=== PATIENT | male | born 1980 | race Caucasian/White ===

== ENCOUNTER 2020-07-07 15:44 | Emergency (ER) | payer OTHER ==
[2020-07-07] MEDS ORDERED: DIPHTH,PERTUSS(ACELL),TET 0.5 ML DISP.SYRIN IM ONE ×2 (16:07→16:49)
--- NOTE | 2020-07-07 16:07 | PDOC ---
Rapid Medical Evaluation Time Seen by Provider: 07/07/20 16:03 Medical Evaluation: 07/07/20 16:03 40 year old male cutr his left hand while cutting sheet rock PE: 1cm laceration to dorsum of left hand overbase of thumb Tetanus lac repair
[2020-07-07 16:11] VITALS: BP 159/98; PULSE 80; TEMP 97.9; BMI 39.1
--- OUTSIDE RECORDS SUMMARY | 2020-07-07 16:23 | XMS ---
:1980 Author Organization [facility] Support Name Relationship Address Phone UE Unavailable Unavailable Unavailable PRUDENCIO CHAPMAN [address] [place] [address] Re-disclosure Warning The records that you are about to access may contain information from federally- assisted alcohol or drug abuse programs. If such information is present, then the following federally mandated warning applies: This information has been disclosed to you from records protected by federal confidentiality rules (42 CFR part 2). The federal rules prohibit you from making any further disclosure of this information unless further disclosure is expressly permitted by the written consent of the person to whom it pertains or as otherwise permitted by 42 CFR part 2. A general authorization for the release of medical or other information is NOT sufficient for this purpose. The Federal rules restrict any use of the information to criminally investigate or prosecute any alcohol or drug abuse patient.The records that you are about to access may contain highly sensitive health information, the redisclosure of which is protected by Article 27-F of the [facility] Public Health law. If you continue you may haveaccess to information: Regarding HIV / AIDS; Provided by facilities licensed or operated by the [facility] Office of Mental Health; or Provided by the [facility] Office for People With Developmental Disabilities. If such information is present, then the following [facility] mandated warning applies: This information has been disclosed to you from confidential records which are protected by state law. State law prohibits you from making any further disclosure of this information without the specific written consent of the person to whom it pertains, or as otherwise permitted by law. Any unauthorized further disclosure in violation of state law may result in a fine or alf sentence or both. A general authorization for the release of medical or other information is NOT sufficient authorization for further disclosure. Insurance Providers Payer name Policy type Policy ID Covered Covered libertarian's Policy P darlin / Coverage libertarian ID relationship to Far[facility] Inf ormation type farah MEDICAID [id number]
--- NOTE | 2020-07-07 17:06 | PDOC ---
History of Present Illness - General Chief Complaint: Laceration Stated Complaint: LACERATION Time Seen by Provider: 07/07/20 16:03 - History of Present Illness Initial Comments: 07/07/20 17:03 40-year-old male not current on tetanus presents for evaluation of a laceration on his left hand which occurred while using a knife. Past History - Medical History Allergies/Adverse Reactions: Allergies Allergy/AdvReac Type Severity Reaction Status Date / Time No Known Allergies Allergy Verified 07/07/20 16:11 COPD: No - Psycho-Social/Smoking History Smoking History: Never smoked Review of Systems - Review of Systems Musculoskeletal: Yes: See HPI *Physical Exam - Vital Signs Last Vital Signs Temp Pulse Resp BP Pulse Ox 97.9 F 80 18 159/98 99 07/07/20 16:10 07/07/20 16:10 07/07/20 16:10 07/07/20 16:10 07/07/20 16:10 - Physical Exam 07/07/20 17:04 Left hand skin color and temperature normal small 1 cm laceration on the dorsum of the left hand on the skin overlying the first metacarpal no gross sensorimotor deficits extensor tendon function is preserved neurovascular intact ED Treatment Course - Medications Given in the ED: ED Medications Discontinued Medications Generic Name Dose Route Start Last Admin Trade Name Freq PRN Reason Stop Dose Admin Diphtheria/Tetanus/Acell Pertussis 0.5 ml 07/07/20 16:07 07/07/20 16:50 Boostrix - IM 07/07/20 16:08 0.5 ml .ONCE ONE Administration Medical Decision Making - Medical Decision Making 07/07/20 17:04 Aseptically 5 cc of 1% lidocaine without epinephrine was used to anesthetize the wound. The wound was explored to its base in a bloodless field without any identification of foreign body. Copiously irrigated with normal saline prepped with Betadine, edges approximated using 4-0 Prolene 3 simple interrupted sutures were used. This was tolerated well a Bacitracin dressing was placed Discharge - Discharge Information Problems reviewed: Yes Clinical Impression/Diagnosis: Laceration of hand Condition: Stable Disposition: HOME - Admission No - Follow up/Referral Referrals: Jesse You MD [Staff Physician] - - Patient Discharge Instructions Additional Instructions: Please keep the dressing on for the next 48 hours. After 48 hours you may remove the dressing wash the area with soap and water and leave it open to air. If you must work please cover the area with a dry sterile dressing such as a large Band-Aid. Keep the area open to air as much as possible. Return to the emergency room for any worsening symptoms or concern for infection such as redness, swelling, increasing pain, or drainage. Other than that sutures out in 10 days Tylenol and Motrin as directed for pain. - Post Discharge Activity
== END 2020-07-07 17:57 | disposition home or self-care (01) ==
LOC: JERFT 15:44
PROC: 3E0234Z Introduction of Serum, Toxoid and Vaccine into Muscle, Percutaneous Approach (ICD-10-PCS; principal; 2020-07-07)
DX: S61.412A Laceration without foreign body of left hand, initial encounter (principal)
CPT/HCPCS: 90715; 99284-25

== ENCOUNTER 2024-09-19 14:56 | Inpatient (IN) | payer OTHER ==
[2024-09-19] MEDS ORDERED: PIPERACILLIN/TAZOB 4.5 GM 4.5 GM/100 ML BAG IVPB ONE (16:11)
[2024-09-19] MEDS ORDERED: VANCOMYCIN 1 GM PREMIX (F) 1 GM/200 ML BAG ONE ×2 (16:12→18:30)
[2024-09-19] MEDS ORDERED: CLINDAMYCIN 600MG PREMIX IVPB 600 MG/50 ML BAG IVPB ONE (16:12)
[2024-09-19 16:39] LABS: HEMATOCRIT 37.9 % (35.4-49); HEMOGLOBIN 12.7 GM/dL (11.7-16.9); MCH 30.1 pg (25.7-33.7); MCHC 33.4 g/dl (32.0-35.9); MEAN CELL VOLUME 90.1 fl (80-96); MEAN PLT VOLUME 7.5 fl (7.5-11.1); PLATELET COUNT 397 10^3/uL (134-434); RBC 4.21 M/mm3 (4.00-5.60); RDW 14.8 % (11.9-15.9)
[2024-09-19 16:41] LABS: INR 1.16 (0.83-1.09)
[2024-09-19 16:44] LABS: ACTIVATED PTT 29.7 SECONDS (25.2-36.5)
[2024-09-19] MEDS: PIPERACILLIN/TAZOB 4.5 GM 4.5 GM in DEXTROSE 5%-WATER 100 ML IVPB ONE (16:49)
[2024-09-19 16:54] LABS: POTASSIUM 3.4 mmol/L (3.5-5.1)
[2024-09-19 16:55] LABS: CHOLESTEROL 109 mg/dL (50-200)
[2024-09-19 16:56] LABS: LDL CHOLESTEROL (ONLY SJRH) 53 mg/dL (5-100)
[2024-09-19 16:57] LABS: ALBUMIN 2.2 g/dl (3.4-5.0); BLOOD UREA NITROGEN 22.9 mg/dL (7-18); MAGNESIUM 2.3 mg/dL (1.8-2.4)
[2024-09-19 16:58] LABS: HDL CHOLESTEROL 13 mg/dL (40-60)
[2024-09-19 17:00] LABS: CREATININE 0.9 mg/dL (0.55-1.3)
[2024-09-19 17:02] LABS: BILIRUBIN,TOTAL 0.9 mg/dL (0.2-1); TOT PROT 6.8 g/dl (6.4-8.2)
[2024-09-19 17:44] LABS: ERYTHROCYTE SEDIMENTATION RATE 89 mm/hr (0-10)
[2024-09-19 17:53] LABS: ANISOCYTOSIS 0; MACROCYTOSIS 0
[2024-09-19] MEDS: CLINDAMYCIN 600MG PREMIX IVPB 600 MG/50 ML BAG IVPB ONE (18:01)
[2024-09-19] MEDS ORDERED: POTASSIUM CHLORIDE TABS 20 MEQ TABLET.ER (FP) PO ONE (18:30)
[2024-09-19] MEDS ORDERED: DIPHTH,PERTUSS(ACELL),TET 0.5 ML DISP.SYRIN IM ONE ×2 (18:32→18:33)
[2024-09-19] MEDS: DIPHTH,PERTUSS(ACELL),TET 0.5 ML DISP.SYRIN IM ONE (18:51)
[2024-09-19] MEDS: VANCOMYCIN 1,000 MG in DEXTROSE 5%-WATER - 250 ML IVPB ONE (18:53)
[2024-09-19] MEDS: POTASSIUM CHLORIDE ORAL LIQUID 20 MEQ/15 ML PO ONE (18:53)
[2024-09-19] MEDS: SODIUM CHLORIDE 1,000 ML IV STA (19:01)
[2024-09-19] MEDS: PIPERACILLIN/TAZOB 3.375 GM 3.375 GM in DEXTROSE 5%-WATER - 50 ML IVPB ONE (19:11)
[2024-09-20] MEDS: PIPERACILLIN/TAZOB 3.375 GM 3.375 GM/50 ML BAG IVPB SCH
[2024-09-20] MEDS ORDERED: PIPERACILLIN/TAZOB 3.375 GM 3.375 GM/50 ML BAG IVPB ONE (00:01)
[2024-09-20] MEDS: ACETAMINOPHEN 1000 MG/100 ML BAG IVPB PRN (00:56)
[2024-09-20] MEDS: SODIUM CHLORIDE 1,000 ML IV SCH (01:07)
[2024-09-20 01:14] VITALS: BMI 39.8
[2024-09-20] MEDS: CLINDAMYCIN 300 MG PREMIX IVPB 300 MG/50 ML BAG IVPB SCH (03:11)
[2024-09-20] MEDS: VANCOMYCIN/WATER FOR INJ (PEG) 1,000 MG/200 ML BAG IVPB SCH (06:19)
[2024-09-20] MEDS: ENOXAPARIN NA (PORCINE) 40 MG/0.4 ML DISP.SYRIN SQ SCH (09:25)
[2024-09-20 10:08] LABS: HEMATOCRIT 34.1 % (35.4-49); HEMOGLOBIN 11.5 GM/dL (11.7-16.9); MCH 30.4 pg (25.7-33.7); MCHC 33.7 g/dl (32.0-35.9); MEAN CELL VOLUME 90.2 fl (80-96); MEAN PLT VOLUME 7.5 fl (7.5-11.1); PLATELET COUNT 372 10^3/uL (134-434); RBC 3.77 M/mm3 (4.00-5.60); RDW 14.6 % (11.9-15.9); WHITE BLOOD COUNT 18.3 K/mm3 (4.0-10.0)
[2024-09-20 10:28] LABS: POTASSIUM 3.5 mmol/L (3.5-5.1)
[2024-09-20 10:32] LABS: ALBUMIN 1.9 g/dl (3.4-5.0); MAGNESIUM 1.9 mg/dL (1.8-2.4)
[2024-09-20 10:33] LABS: ANISOCYTOSIS 0; MACROCYTOSIS 0
[2024-09-20 10:35] LABS: CREATININE 0.7 mg/dL (0.55-1.3)
[2024-09-20 10:36] LABS: BILIRUBIN,TOTAL 0.9 mg/dL (0.2-1); PHOSPHOROUS 2.9 mg/dL (2.5-4.9)
[2024-09-20 10:37] LABS: TOT PROT 5.9 g/dl (6.4-8.2)
[2024-09-20] MEDS: PIPERACILLIN/TAZOB 3.375 GM 50 ML IVPB SCH (12:20)
[2024-09-20] MEDS: VANCOMYCIN 1,000 MG in DEXTROSE 5%-WATER - 250 ML IVPB SCH (16:02)
[2024-09-20] MEDS: FUROSEMIDE 20 MG TABLET (FP) PO ONE (16:12)
[2024-09-20] MEDS: PIPERACILLIN/TAZOB 4.5 GM 4.5 GM/100 ML BAG IVPB SCH (18:47)
[2024-09-20] MEDS ORDERED: ACETAMINOPHEN 1000 MG/100 ML BAG IVPB PRN (19:13)
[2024-09-20] MEDS: VANCOMYCIN PREMIX 1.5 GM 1,500 MG/300 ML BAG IVPB SCH (20:08)
[2024-09-21] MEDS: CLINDAMYCIN 600MG PREMIX IVPB 600 MG/50 ML BAG IVPB SCH
[2024-09-21] MEDS: MELATONIN 5 MG TABLETS PO ONE (00:03)
[2024-09-21 10:29] LABS: HEMATOCRIT 33.7 % (35.4-49); HEMOGLOBIN 11.4 GM/dL (11.7-16.9); MCH 30.3 pg (25.7-33.7); MCHC 33.8 g/dl (32.0-35.9); MEAN CELL VOLUME 89.8 fl (80-96); MEAN PLT VOLUME 6.7 fl (7.5-11.1); PLATELET COUNT 416 10^3/uL (134-434); RBC 3.76 M/mm3 (4.00-5.60); RDW 14.7 % (11.9-15.9); WHITE BLOOD COUNT 16.1 K/mm3 (4.0-10.0)
[2024-09-21 10:57] LABS: POTASSIUM 3.7 mmol/L (3.5-5.1)
[2024-09-21 11:02] LABS: ALBUMIN 1.9 g/dl (3.4-5.0); CALCIUM 8.2 mg/dL (8.5-10.1)
[2024-09-21 11:05] LABS: CREATININE 0.7 mg/dL (0.55-1.3)
[2024-09-21 11:07] LABS: BILIRUBIN,TOTAL 0.8 mg/dL (0.2-1); TOT PROT 6.5 g/dl (6.4-8.2)
[2024-09-21] MEDS: FUROSEMIDE 40 MG TABLET (FP) PO ONE (11:11)
[2024-09-21] MEDS: KETOROLAC TROMETHAMINE 15 MG/ML VIAL IVPUSH PRN (21:57)
[2024-09-22 09:22] LABS: HEMATOCRIT 34.4 % (35.4-49); HEMOGLOBIN 11.5 GM/dL (11.7-16.9); MCH 30.5 pg (25.7-33.7); MCHC 33.6 g/dl (32.0-35.9); MEAN CELL VOLUME 90.7 fl (80-96); PLATELET COUNT 364 10^3/uL (134-434); RBC 3.79 M/mm3 (4.00-5.60); RDW 14.6 % (11.9-15.9); WHITE BLOOD COUNT 10.9 K/mm3 (4.0-10.0)
[2024-09-22 09:38] LABS: POTASSIUM 3.6 mmol/L (3.5-5.1)
[2024-09-22 09:50] LABS: CALCIUM 8.4 mg/dL (8.5-10.1)
[2024-09-22 09:51] LABS: ALBUMIN 1.8 g/dl (3.4-5.0); BLOOD UREA NITROGEN 12.4 mg/dL (7-18)
[2024-09-22 09:54] LABS: CREATININE 0.7 mg/dL (0.55-1.3)
[2024-09-22 09:56] LABS: BILIRUBIN,TOTAL 0.8 mg/dL (0.2-1); TOT PROT 6.8 g/dl (6.4-8.2)
[2024-09-22] MEDS: BACITRACIN ZINC 15 GM TUBE TOPICAL OINTMENT TP SCH (18:23)
[2024-09-23 09:03] VITALS: RESP 19
[2024-09-23] MEDS: ACETAMINOPHEN 325 MG TABLET (FP) PO PRN (10:07)
[2024-09-23 10:36] LABS: HEMATOCRIT 34.1 % (35.4-49); HEMOGLOBIN 11.6 GM/dL (11.7-16.9); MCH 30.4 pg (25.7-33.7); MCHC 34.1 g/dl (32.0-35.9); MEAN CELL VOLUME 89.4 fl (80-96); MEAN PLT VOLUME 6.8 fl (7.5-11.1); PLATELET COUNT 391 10^3/uL (134-434); RBC 3.82 M/mm3 (4.00-5.60); RDW 14.3 % (11.9-15.9); WHITE BLOOD COUNT 8.4 K/mm3 (4.0-10.0)
[2024-09-23 10:52] LABS: POTASSIUM 3.9 mmol/L (3.5-5.1)
[2024-09-23 10:55] LABS: CALCIUM 8.3 mg/dL (8.5-10.1)
[2024-09-23 10:57] LABS: MAGNESIUM 1.9 mg/dL (1.8-2.4)
[2024-09-23 10:59] LABS: CREATININE 0.7 mg/dL (0.55-1.3); PHOSPHOROUS 3.2 mg/dL (2.5-4.9)
[2024-09-23 15:46] VITALS: BP 135/76; PULSE 64; TEMP 98.1
== END 2024-09-23 16:35 | disposition home or self-care (01) | DRG 383 ==
LOC: JER 14:56 → JERBED 20:57 → J5S 09-20 00:33
PROVIDERS: ADMIT Internal Medicine; ATTEND Internal Medicine
DX: L03.116 Cellulitis of left lower limb (principal); L97.929 Non-pressure chronic ulcer of unspecified part of left lower leg with unspecified severity; E66.9 Obesity, unspecified; L53.9 Erythematous condition, unspecified; R60.9 Edema, unspecified; Z68.39 Body mass index [BMI] 39.0-39.9, adult
CPT/HCPCS: 0241U-QW; 36415; 73701-TC-RT; 80048; 80053; 80061; 83036; 83605; 83735; 84100; 85025; 85027; 85610; 85651; 85730; 86140; 86850; 86900; 86901; 87040; 87081; 90715; 93306-TC; 93970-TC; 99285-25; G0480; J0131; Q9967